=== PATIENT | male | born 1955 | race Two or more races ===

== ENCOUNTER 2018-02-14 13:01 | Inpatient (IN) | payer OTHER ==
[~2018-02-14] VITALS: Ht 170.2 cm; Wt 161.0 kg
[~2018-02-14 13:01] MED LIST: SYNTHROID112 MCG
[2018-02-14] MEDS ORDERED: VASOTEC20 M1 PO (13:07)
[2018-02-14] MEDS ORDERED: METFORMIN HCL500 MG PO (13:07)
== END 2018-02-20 16:49 | disposition home or self-care (01) | DRG 638 ==
LOC: ER 13:01 → MEDJ 17:54
PROC: 8E0ZXY6 Isolation (ICD-10-PCS; principal; 2018-02-14)
DX: E11.621 Type 2 diabetes mellitus with foot ulcer (principal); L97.518 Non-pressure chronic ulcer of other part of right foot with other specified severity; L03.115 Cellulitis of right lower limb; E66.01 Morbid (severe) obesity due to excess calories; I10 Essential (primary) hypertension; E03.8 Other specified hypothyroidism; E11.51 Type 2 diabetes mellitus with diabetic peripheral angiopathy without gangrene; D64.89 Other specified anemias; B96.5 Pseudomonas (aeruginosa) (mallei) (pseudomallei) as the cause of diseases classified elsewhere; Z16.24 Resistance to multiple antibiotics; B95.61 Methicillin susceptible Staphylococcus aureus infection as the cause of diseases classified elsewhere; B95.2 Enterococcus as the cause of diseases classified elsewhere